=== PATIENT | male | born 1945 | race Asian ===

== ENCOUNTER 2017-01-28 22:00 | Emergency (ER) | payer MEDICARE, MEDICAID ==
[~2017-01-28 22:00] MED LIST: ACETAMINOPHEN325 M2 PO; ARICEPT10 M2 PO; ASPIR 8181 M1 PO; BONINE PO; CALCI-CHEW500 MG PO; CEFDINIR300 M1 PO; CITALOPRAM HBR10 M1 PO; CLOPIDOGREL75 M1 PO; COLACE100 M1 PO; COUMADIN3 M1 PO; COZAAR100 M1 PO; DIFLUCAN100 M1 PO; DULCOLAX10 MG PR; FENOFIBRIC ACI135 M1 PO; GLUCAGON HCL1 MG IM; GLUCOPHAGE1000 M1 PO; IPRAT-ALBUT 0.5-3 ML INH; LANTUS SOL100 UNIT/1 SQ; LEVAQUIN500 M1 PO; MIRALAX17 G2 PO; NITROGLYCERIN0.4 M2 SL; NORVASC5 M2 PO; OMEGA-31000 M2 PO; PACERONE200 M1 PO; PATADAY2.5 M1 OP; PREDNISONE20 M1 PO; PROMETHAZINE12.5 M2 PO; PROTONIX40 M2 PO; SIMVASTATIN40 M1 PO; TOUJEO SOL300 UNIT/1; ZEBETA5 M2 PO
[2017-01-28] MEDS ORDERED: WARFARIN SODIUM1 M2 PO (22:20)
[2017-01-28] MEDS ORDERED: GLUCOPHAGE500 M3 PO (22:21)
[2017-01-28] MEDS ORDERED: SENEXON-S TABL1 EAC1 PO (22:22)
[2017-01-28] MEDS ORDERED: COZAAR100 M1 PO (22:22)
[2017-01-28] MEDS ORDERED: PRAVASTATIN SOD80 M1 PO (22:22)
[2017-01-28 22:59] LABS: BASO % 0.2 % (0-2); EOS % 0.9 % (0-7); EOSINOPHIL ABSOLUTE COUNT 0.1 tho/cmm (0.0-0.7); HGB-HEMOGLOBIN 12.7 gm/dl (13.5-17.0); IMMATURE GRANULOCYTES ABSOLUTE 0.04 tho/cmm (0-0.03); IMMATURE GRANULOCYTES PERCENT 0.4 % (0-0.3); LYMPH ABSOLUTE COUNT 1.9 tho/cmm (0.8-4.5); MCH (MEAN CORPUSCULAR HGB) 30.8 pg (28.0-32.0); MCHC MEAN CORPUSCULAR HGB CONC 34.3 % (32.0-36.0); MCV (MEAN CELL VOLUME) 89.6 fl (82.0-96.0); MEAN PLATELET VOLUME 10.4 cmc (9.4-12.4); MONO % 6.4 % (0-12); MONOCYTE ABSOLUTE COUNT 0.6 tho/cmm (0.0-1.2); NEUTROPHIL ABSOLUTE COUNT 6.6 tho/cmm (1.6-8.0); NEUTROPHIL-AUTOMATED 6.6 tho/cmm (1.6-8.0); NEUTROPHILS % 71.1 % (40-80); PLATELET COUNT 278 tho/cmm (150-450); RED BLOOD COUNT 4.13 mil/cmm (4.40-5.70); RED CELL DISTRIBUTION WIDTH 13.6 % (12.4-16.4); WHITE BLOOD COUNT 9.3 tho/cmm (4.0-10.0)
[2017-01-28 23:06] LABS: PROTHROMBIN TIME 35.9 SECONDS (9.0-13.6)
[2017-01-28 23:18] LABS: ALB/GLOB RATIO 0.7 (0.8-2.0); ALBUMIN 2.7 g/dl (3.5-5.0); ALKALINE PHOSPHATASE 86 U/L (33-138); ALT/SGPT 29 U/L (12-78); BILIRUBIN,TOTAL 0.2 mg/dl (0.0-1.5); BLOOD UREA NITROGEN 35 mg/dl (6-24); CALCIUM 8.2 mg/dl (8.5-10.5); CARBON DIOXIDE-VENOUS 22 mmol/L (22-32); CHLORIDE 111 mmol/l (96-110); GLUCOSE 122 mg/dL (70-110); SODIUM 144 mmol/L (135-145); eGFR VALUE FOR BLACK 43 mL/Min
[2017-01-28 23:21] LABS: ANION GAP 15 mmol/L (0-20); AST/SGOT 30 U/L (10-40); MAGNESIUM 1.8 mg/dl (1.8-2.6); POTASSIUM 4.1 mmol/L (3.7-5.1)
[2017-01-28 23:29] LABS: TSH-THYROID STIMULATING HORM. 1.82 uIU/ml (0.40-3.80)
[2017-01-29] LABS: URINE LEUKOCYTE ESTERASE NEGATIVE (NEG); URINE PROTEIN LARGE (NEG)
[2017-01-29 00:04] LABS: URINE APPEARANCE CLEAR; URINE BILIRUBIN NEGATIVE (NEG); URINE BLOOD MODERATE (NEG); URINE COLOR PALE YELLOW; URINE GLUCOSE (UA) MODERATE (NEG); URINE KETONE NEGATIVE (NEG); URINE NITRITE NEGATIVE (NEG)
[2017-01-29 00:10] LABS: URINE WBC 0-1 /[HPF] (0-5)
[2017-01-29 00:11] LABS: URINE EPITHELIAL CELLS 0-1 /[HPF] (0-10)
== END 2017-01-29 03:20 ==
LOC: EDMED 22:00
PROVIDERS: Emergency Medicine
DX: J18.9 Pneumonia, unspecified organism (principal); F43.21 Adjustment disorder with depressed mood; I48.91 Unspecified atrial fibrillation; K21.9 Gastro-esophageal reflux disease without esophagitis; I10 Essential (primary) hypertension; E11.9 Type 2 diabetes mellitus without complications; R55 Syncope and collapse; Z86.73 Personal history of transient ischemic attack (TIA), and cerebral infarction without residual deficits; Z79.4 Long term (current) use of insulin; Z95.1 Presence of aortocoronary bypass graft; Z79.01 Long term (current) use of anticoagulants
CPT/HCPCS: J0456; J0696; J7030; J7050